=== PATIENT | female | born 1950 | race Caucasian/White ===

== ENCOUNTER → 2017-08-21 15:42 | Outpatient (CLI) | payer MEDICARE, OTHER, SELFPAY ==
[2017-08-21 17:37] LABS: Microalbumin,Random Urine 51.6 mg/L (NO RANGE EST.); Microalbumin:Creatinine Ratio 31.9 mg/g CRE (<30 mg/g CRE)
== END ==
PROVIDERS: Family Provider Family Medicine Geriatric Medicine; PCP Family Medicine Geriatric Medicine; Visit Provider Internal Medicine Nephrology
DX: E11.9 Type 2 diabetes mellitus without complications (principal)
CPT/HCPCS: 82043; 82570

== ENCOUNTER → 2017-08-23 14:41 | Outpatient (CLI) | payer MEDICARE, OTHER, SELFPAY ==
--- NOTE | 2017-08-23 14:45 | US_ITS ---
STUDY: RENAL ULTRASOUND - COMPLETE REASON FOR EXAM: Female, 66 years old. Chronic kidney disease stage III. TECHNIQUE: Ultrasound evaluation of the kidneys was performed with real-time and static yeh-scale imaging. COMPARISON: None. FINDINGS: RIGHT KIDNEY: Normal location of the right kidney, which is normal in size. The right kidney measures 10.5 cm. There is a normal cortex of the right kidney. The renal cortex measures 1.1 cm. There is no right renal mass or cyst. There are no right renal calculi. There is no right hydronephrosis. DISTAL RIGHT URETER: There is non-visualization of the distal right ureter. There is no demonstrated right ureterovesical junction calculus. There is no demonstrated right ureteral jet. LEFT KIDNEY: Normal location of the left kidney, which is normal in size. The left kidney measures 11.3 cm. There is a normal cortex of the left kidney. The renal cortex measures 1.2 cm. There is no left renal mass or cyst. There is a 6 x 8 x 8 cm echogenic focus in the mid wall with shadowing. There is no left hydronephrosis. DISTAL LEFT URETER: There is non-visualization of the distal left ureter. There is no demonstrated left ureterovesical junction calculus. There is no demonstrated left ureteral jet. BLADDER: The incompletely distended urinary bladder has a volume of 53 ml. There is a normal wall thickness of the distended urinary bladder. There is no demonstrated mass within the urinary bladder. There are no demonstrated bladder calculi. US/Kidney and Bladder IMPRESSION: 1. Echogenic focus in the mid left kidney suggesting cortical calcification or stone. 2. Otherwise normal renal ultrasound. Electronically Signed: Milind Bertrand DO at 15:58 EST Tel [phone], Service support ,
== END ==
PROVIDERS: Family Provider Family Medicine Geriatric Medicine; PCP Family Medicine Geriatric Medicine; Visit Provider Internal Medicine Nephrology
DX: N18.3 Chronic kidney disease, stage 3 (moderate) (principal)
CPT/HCPCS: 76770

== ENCOUNTER → 2017-10-03 12:21 | Outpatient (CLI) | payer MEDICARE, OTHER, SELFPAY ==
[2017-10-03 13:24] LABS: Absolute Lymphocyte Count 1.19 X10^3/ul (0.83-4.51); Basophil# 0.01 X10^3/uL; Basophil% 0.3 % (0-1); Eosinophil# 0.06 X10^3/uL; Eosinophils% 1.7 % (0-5); Hematocrit 40.4 % (37-47); Hemoglobin 12.5 g/dl (12.0-15.0); Lymphocyte # 1.19 X10^3/ul (4.0); Lymphocyte % 34.1 % (19-41); Mean Corp Hgb Conc 30.9 g/gl (32-36); Mean Corpuscular Hgb 27.3 pg (27.0-32.0); Mean Corpuscular Volume 88.2 fL (81-99); Mean Platelet Vol. 12.6 fl (6.2-12.0); Monocyte# 0.27 X10^3/uL; Monocyte% 7.7 % (0-10); Neutrophil # 1.96 X10^3/uL (2.7-7.7); Neutrophil % 56.2 % (47-70); Platelet Count 111 K/mm3 (150-450); RBC Distribution Width CV 14.2 % (11.6-14.6); RBC Distribution Width SD 45.6 fl (35.1-43.9); Red Blood Count 4.58 M/mm3 (4.2-5.4); White Blood Count 3.5 K/mm3 (4.4-11.0)
[2017-10-03 13:36] LABS: POSITIVE COUNT NO; POSITIVE DIFFERENTIAL NO; POSITIVE MORPHOLOGY NO
[2017-10-03 13:40] LABS: Vitamin D,25 Hydroxy 55.1 ng/mL (29.95-100.01)
[2017-10-03 13:42] LABS: AST(SGOT) 35 U/L (15-37); Alanine Aminotransfer ALT/SGPT 140 U/L (13-56); Albumin, Serum 3.8 g/dL (3.2-5.0); Alkaline Phosphatase 116 U/L (45-117); Anion Gap 7 (5-15); BUN 43 mg/dL (7-18); BUN/Creat Ratio 31.2 RATIO (10-20); Bilirubin, Direct 0.11 mg/dL (0.00-0.30); Calcium,Total 8.9 mg/dL (8.5-10.1); Chloride 105 mmol/L (98-107); Creatinine, Serum 1.38 mg/dL (0.55-1.02); EST Glomerular Filtration Rate 40 mL/min (>60); Est Glom Filt Rate - Afr Amer 49 mL/min (>60); Globulin 3.5 g/dL (2.2-4.2); Glucose 146 mg/dL (74-106); Phosphorus 3.4 mg/dL (2.5-4.9); Potassium 4.4 mmol/L (3.5-5.1); Protein, Total 7.3 g/dL (6.4-8.2); Sodium Level 139 mmol/L (136-145); Thyroid Stim Hormone (TSH) 3.15 uIU/mL (0.358-3.74)
[2017-10-03 13:56] LABS: PTHIN 58.5 pg/mL (18.4-80.1)
== END ==
PROVIDERS: Family Provider Family Medicine Geriatric Medicine; PCP Family Medicine Geriatric Medicine; Visit Provider Internal Medicine Nephrology
DX: E11.9 Type 2 diabetes mellitus without complications (principal); I12.9 Hypertensive chronic kidney disease with stage 1 through stage 4 chronic kidney disease, or unspecified chronic kidney disease; N18.3 Chronic kidney disease, stage 3 (moderate); E55.9 Vitamin D deficiency, unspecified
CPT/HCPCS: 36415; 80048; 80076; 82306; 83970; 84100; 84443; 85025

== ENCOUNTER → 2018-01-21 10:46 | Outpatient (CLI) | payer MEDICARE, OTHER, SELFPAY ==
[2018-01-21 12:32] LABS: Absolute Lymphocyte Count 1.64 X10^3/ul (0.83-4.51); Absolute Neutrophil Count 2.8 X10^3/uL (2.0-7.7); Basophil# 0.01 X10^3/uL; Basophil% 0.2 % (0-1); Eosinophil# 0.09 X10^3/uL; Eosinophils% 1.9 % (0-5); Hematocrit 38.6 % (37-47); Hemoglobin 11.9 g/dl (12.0-15.0); Lymphocyte # 1.64 X10^3/ul (4.0); Mean Corp Hgb Conc 30.8 g/gl (32-36); Mean Corpuscular Hgb 27.4 pg (27.0-32.0); Mean Corpuscular Volume 88.7 fL (81-99); Mean Platelet Vol. 12.7 fl (6.2-12.0); Monocyte# 0.33 X10^3/uL; Monocyte% 6.8 % (0-10); Neutrophil # 2.75 X10^3/uL (2.7-7.7); Neutrophil % 56.9 % (47-70); Platelet Count 114 K/mm3 (150-450); RBC Distribution Width CV 14.4 % (11.6-14.6); RBC Distribution Width SD 46.3 fl (35.1-43.9); Red Blood Count 4.35 M/mm3 (4.2-5.4); White Blood Count 4.8 K/mm3 (4.4-11.0)
[2018-01-21 12:36] LABS: POSITIVE COUNT NO; POSITIVE DIFFERENTIAL NO; POSITIVE MORPHOLOGY NO
[2018-01-21 12:55] LABS: ALB/GLOB Ratio 1.1 RATIO (0.9-2.4); AST(SGOT) 7 U/L (15-37); Alanine Aminotransfer ALT/SGPT 28 U/L (13-56); Albumin, Serum 3.7 g/dL (3.2-5.0); Alkaline Phosphatase 76 U/L (45-117); Anion Gap 6 (5-15); BUN 53 mg/dL (7-18); BUN/Creat Ratio 35.1 RATIO (10-20); Calcium,Total 8.6 mg/dL (8.5-10.1); Chloride 108 mmol/L (98-107); Creatinine, Serum 1.51 mg/dL (0.55-1.02); EST Glomerular Filtration Rate 36 mL/min (>60); Est Glom Filt Rate - Afr Amer 44 mL/min (>60); Globulin 3.3 g/dL (2.2-4.2); Glucose 120 mg/dL (74-106); Phosphorus 2.9 mg/dL (2.5-4.9); Potassium 5.1 mmol/L (3.5-5.1); Sodium Level 138 mmol/L (136-145); Thyroid Stim Hormone (TSH) 2.55 uIU/mL (0.358-3.74)
== END ==
PROVIDERS: Family Provider Family Medicine Geriatric Medicine; PCP Family Medicine Geriatric Medicine; Visit Provider Family Medicine Geriatric Medicine
DX: E55.9 Vitamin D deficiency, unspecified (principal); I12.9 Hypertensive chronic kidney disease with stage 1 through stage 4 chronic kidney disease, or unspecified chronic kidney disease; E11.22 Type 2 diabetes mellitus with diabetic chronic kidney disease; N18.3 Chronic kidney disease, stage 3 (moderate)
CPT/HCPCS: 36415; 80053; 82306; 84100; 84443; 85025

== ENCOUNTER → 2018-03-04 08:46 | Outpatient (CLI) | payer MEDICARE, OTHER, SELFPAY ==
[2018-03-04 09:45] LABS: Albumin, Serum 3.6 g/dL (3.2-5.0); BUN 35 mg/dL (7-18); BUN/Creat Ratio 24.5 RATIO (10-20); Calcium,Total 8.1 mg/dL (8.5-10.1); Chloride 111 mmol/L (98-107); Creatinine, Serum 1.43 mg/dL (0.55-1.02); EST Glomerular Filtration Rate 39 mL/min (>60); Est Glom Filt Rate - Afr Amer 47 mL/min (>60); Glucose 128 mg/dL (74-106); Phosphorus 3.4 mg/dL (2.5-4.9); Potassium 4.8 mmol/L (3.5-5.1); Sodium Level 143 mmol/L (136-145)
== END ==
LOC: POLAB3 08:47 → LAB 09:03
PROVIDERS: Family Provider Family Medicine Geriatric Medicine; PCP Family Medicine Geriatric Medicine; Visit Provider Family Medicine Geriatric Medicine
DX: N18.3 Chronic kidney disease, stage 3 (moderate) (principal)
CPT/HCPCS: 36415; 80069

== ENCOUNTER → 2018-04-15 11:50 | Outpatient (CLI) | payer MEDICARE, OTHER, SELFPAY ==
[2018-04-15 12:31] LABS: Absolute Lymphocyte Count 1.47 X10^3/ul (0.83-4.51); Absolute Neutrophil Count 2.6 X10^3/uL (2.0-7.7); Eosinophil# 0.11 X10^3/uL; Eosinophils% 2.5 % (0-5); Hematocrit 38.7 % (37-47); Hemoglobin 11.9 g/dl (12.0-15.0); Lymphocyte # 1.47 X10^3/ul (4.0); Lymphocyte % 33.2 % (19-41); Mean Corp Hgb Conc 30.7 g/gl (32-36); Mean Corpuscular Hgb 27.5 pg (27.0-32.0); Mean Corpuscular Volume 89.6 fL (81-99); Mean Platelet Vol. 11.9 fl (6.2-12.0); Monocyte# 0.29 X10^3/uL; Monocyte% 6.5 % (0-10); Neutrophil # 2.56 X10^3/uL (2.7-7.7); Neutrophil % 57.8 % (47-70); Platelet Count 113 K/mm3 (150-450); RBC Distribution Width CV 14.3 % (11.6-14.6); RBC Distribution Width SD 47.1 fl (35.1-43.9); Red Blood Count 4.32 M/mm3 (4.2-5.4); White Blood Count 4.4 K/mm3 (4.4-11.0)
[2018-04-15 12:35] LABS: POSITIVE COUNT NO; POSITIVE DIFFERENTIAL NO; POSITIVE MORPHOLOGY NO
[2018-04-15 12:54] LABS: ALB/GLOB Ratio 1.1 RATIO (0.9-2.4); AST(SGOT) 9 U/L (15-37); Alanine Aminotransfer ALT/SGPT 30 U/L (13-56); Albumin, Serum 3.9 g/dL (3.2-5.0); Alkaline Phosphatase 77 U/L (45-117); Anion Gap 9 (5-15); BUN 46 mg/dL (7-18); BUN/Creat Ratio 30.9 RATIO (10-20); Chloride 107 mmol/L (98-107); Creatinine, Serum 1.49 mg/dL (0.55-1.02); EST Glomerular Filtration Rate 37 mL/min (>60); Est Glom Filt Rate - Afr Amer 45 mL/min (>60); Globulin 3.4 g/dL (2.2-4.2); Glucose 146 mg/dL (74-106); Potassium 4.8 mmol/L (3.5-5.1); Protein, Total 7.3 g/dL (6.4-8.2); Sodium Level 141 mmol/L (136-145)
[2018-04-15 13:05] LABS: Vitamin D,25 Hydroxy 32.5 ng/mL (29.95-100.01)
== END ==
PROVIDERS: Family Provider Family Medicine Geriatric Medicine; PCP Family Medicine Geriatric Medicine; Visit Provider Family Medicine Geriatric Medicine
DX: E11.9 Type 2 diabetes mellitus without complications (principal); E55.9 Vitamin D deficiency, unspecified; I10 Essential (primary) hypertension
CPT/HCPCS: 36415; 80053; 82306; 84443; 85025

== ENCOUNTER → 2018-07-08 13:13 | Outpatient (CLI) | payer MEDICARE, OTHER, SELFPAY ==
[2018-07-08 15:05] LABS: Absolute Lymphocyte Count 1.17 X10^3/ul (0.83-4.51); Absolute Neutrophil Count 1.7 X10^3/uL (2.0-7.7); Basophil# 0.01 X10^3/uL; Basophil% 0.3 % (0-1); Eosinophil# 0.09 X10^3/uL; Eosinophils% 2.8 % (0-5); Hematocrit 38.9 % (37-47); Hemoglobin 11.9 g/dl (12.0-15.0); Lymphocyte # 1.17 X10^3/ul (4.0); Lymphocyte % 36.7 % (19-41); Mean Corp Hgb Conc 30.6 g/gl (32-36); Mean Corpuscular Hgb 26.8 pg (27.0-32.0); Mean Corpuscular Volume 87.6 fL (81-99); Mean Platelet Vol. 12.3 fl (6.2-12.0); Monocyte# 0.25 X10^3/uL; Monocyte% 7.8 % (0-10); Neutrophil # 1.66 X10^3/uL (2.7-7.7); Neutrophil % 52.1 % (47-70); Platelet Count 118 K/mm3 (150-450); RBC Distribution Width SD 45.3 fl (35.1-43.9); Red Blood Count 4.44 M/mm3 (4.2-5.4); White Blood Count 3.2 K/mm3 (4.4-11.0)
[2018-07-08 15:08] LABS: POSITIVE COUNT NO; POSITIVE DIFFERENTIAL NO; POSITIVE MORPHOLOGY NO
[2018-07-08 15:27] LABS: ALB/GLOB Ratio 1.2 RATIO (0.9-2.4); AST(SGOT) 8 U/L (15-37); Alanine Aminotransfer ALT/SGPT 27 U/L (13-56); Albumin, Serum 3.8 g/dL (3.2-5.0); Alkaline Phosphatase 81 U/L (45-117); Anion Gap 6 (5-15); BUN 29 mg/dL (7-18); BUN/Creat Ratio 20.1 RATIO (10-20); Calcium,Total 8.6 mg/dL (8.5-10.1); Chloride 108 mmol/L (98-107); Creatinine, Serum 1.44 mg/dL (0.55-1.02); EST Glomerular Filtration Rate 38 mL/min (>60); Est Glom Filt Rate - Afr Amer 46 mL/min (>60); Globulin 3.3 g/dL (2.2-4.2); Glucose 151 mg/dL (74-106); Potassium 4.5 mmol/L (3.5-5.1); Protein, Total 7.1 g/dL (6.4-8.2); Sodium Level 140 mmol/L (136-145); Thyroid Stim Hormone (TSH) 2.91 uIU/mL (0.358-3.74)
[2018-07-08 15:28] LABS: Vitamin D,25 Hydroxy 39.2 ng/mL (29.95-100.01)
--- OUTSIDE RECORDS SUMMARY | 2018-10-10 03:57 | XMS RPT_ITS ---
:1950 Author Organization OHIP Care Team Providers Name Role Phone Mikey, Evan Chi Attending Unavailable Mikey, Evan Chi Primary Care Unavailable Mikey, Evan Chi Primary Care Unavailable Teofilo, Rebecca Attending Unavailable Teofilo, Rebecca Attending Unavailable Mikey, Evan Chi Primary Care Unavailable Teofilo, Rebecca Attending Unavailable Teofilo, Rebecca Referring Unavailable Mikey, Evan Chi Primary Care Unavailable Teofilo, Rebecca Attending Unavailable Mikey, Evan Chi Primary Care Unavailable Teofilo, Rebecca Attending Unavailable Mikey, Evan Chi Primary Care Unavailable Teofilo, Rebecca Attending Unavailable Mikey, Evan Chi Primary Care Unavailable Mikey, Evan Chi Attending Unavailable Mikey, Evan Chi Primary Care Unavailable Mikey, Evan Chi Attending Unavailable Mikey, Evan Chi Primary Care Unavailable Mikey, Evan Chi Referring Unavailable Mikey, Evan Chi Attending Unavailable Mikey, Evan Chi Primary Care Unavailable Teofilo, Rebecca Attending Unavailable Mikey, Evan Chi Primary Care Unavailable PROBLEMS PROBLEMS DATE TYPE CONDITION / CODE ATTENDING STATUS SOURCE 03/04/2018 Unknown E11.9 - Type 2 Mikey, Evan Chi Active [place] diabetes mellitus Community without Hospital complications / Repository E11.9(ICD-10) 03/04/2018 Unknown N18.3 - Chronic Mikey, Evan Chi Active [place] kidney disease, Community stage 3 (moderate) Hospital / N18.3(ICD-10) Repository 03/04/2018 Unknown E55.9 - Vitamin D Mikey, Evan Chi Active [place] deficiency, Community unspecified / Hospital E55.9(ICD-10) Repository 01/21/2018 Unknown I10 - Essential Mikey, Evan Chi Active [place] (primary) Community hypertension / Hospital I10(ICD-10) Repository PROCEDURES PROCEDURES No Procedure Records FoundRESULTS RESULTS CBC W/DIFF, AUTOMATED Collected: 07/08/2018 Status: F Source: [facility] 1:29 PM [facility] REPOSITORY TYPE CODE TESTS RESULT OUT OF RANGE REFERENCE UNITS LAB L100.1000 4.4-11.0 K/mm3 Low WBC 3.2 LAB L100.1200 4.2-5.4 M/mm3 Normal RBC 4.44 LAB L100.1300 12.0-15.0 g/dl Low HGB 11.9 LAB L100.1400 37-47 % Normal HCT 38.9 LAB L100.1500 81-99 fL Normal MCV 87.6 LAB L100.1600 27.0-32.0 pg Low MCH 26.8 LAB L100.1700 32-36 g/gl Low MCHC 30.6 LAB L100.1810 11.6-14.6 % Normal RDW CV 14.0 LAB L100.1820 35.1-43.9 fl High RDW SD 45.3 LAB L100.1900 150-450 K/mm3 Low PLT 118 LAB L100.2000 6.2-12.0 fl High MPV 12.3 LAB L100.2100 47-70 % Normal NEUT% 52.1 LAB L100.2200 19-41 % Normal LY% 36.7 LAB L100.2300 0-10 % Normal MONO% 7.8 LAB L100.2400 0-5 % Normal EO% 2.8 LAB L100.2500 0-1 % Normal BASO% 0.3 LAB L100.2550 0.0-0.9 % Normal IM GRAN % 0.300 Result Comment: IG% - Immature Granulocytes (promyelocytes, myelocytes and metamyelocytes) > 1% indicates that a LEFT SHIFT is Present. LAB L100.2620 2.0-7.7 X10 3/uL Low Absolute Neut 1.7 LAB L100.2720 0.83-4.51 X10 3/ul Normal Absolute Lymph 1.17 Performed By: #### L100.0100 #### [facility] [address] [place], [place], [id number] COMPREHENSIVE METABOLIC Collected: 07/08/2018 Status: F Source: IG[facility] 1:29 PM [facility] REPOSITORY TYPE CODE TESTS RESULT OUT OF RANGE REFERENCE UNITS LAB L501.0100 74-106 mg/dL High GLU 151 Result Comment: Fasting Glucose result greater than or equal to 126 mg/dL suggests DIABETES MELLITUS per A.D.A. criteria. Please note revised GLUCOSE reference range effective 2017. LAB L501.1000 7-18 mg/dL High BUN 29 LAB L501.1100 0.55-1.02 mg/dL High CREAT,SERUM 1.44 Result Comment: The validity of the calculated GFR AND GFRAA in patients over 70 years has not been determined. Clinical correlation is essential. LAB L501.1110 >60 mL/min Low EST GFR 38 Result Comment: Non- GFR Calc LAB L501.1115 >60 mL/min Low EST GFR - AA 46 Result Comment: GFR Calc LAB L501.1300 10-20 RATIO High BUN/CRE 20.1 LAB L501.1500 6.4-8.2 g/dL T Normal PROT 7.1 LAB L501.1800 3.2-5.0 g/dL Normal ALB 3.8 LAB L501.1950 2.2-4.2 g/dL Normal GLOB 3.3 LAB L501.2000 0.9-2.4 RATIO Normal A/G 1.2 LAB L501.2200 8.5-10.1 mg/dL CA Normal 8.6 LAB L501.4100 15-37 U/L Low AST 8 LAB L501.4305 45-117 U/L Normal ALK P 81 LAB L501.4405 13-56 U/L Normal ALT 27 LAB L501.4600 0.20-1.00 mg/dL T Normal BILI 0.60 LAB L501.5300 136-145 mmol/L NA Normal 140 LAB L501.5600 3.5-5.1 mmol/L K Normal 4.5 LAB L501.5900 98-107 mmol/L High CL 108 LAB L501.6100 21.0-32.0 mmol/L Normal CO2 26.0 LAB L501.6200 5-15 Normal GAP 6 Performed By: #### L500.4050, L501.9520 #### [facility] [address] [place], [address] THYROID STIM HORMONE Collected: 07/08/2018 Status: F Source: IG[facility] (TSH) 1:29 PM [facility] REPOSITORY TYPE CODE TESTS RESULT OUT OF RANGE REFERENCE UNITS LAB L501.9520 0.358-3.74 uIU/mL Normal TSH 2.91 Performed By: #### L500.4050, L501.9520 #### [facility] [address] [place], [address] VITAMIN D,25 HYDROXY Collected: 07/08/2018 Status: F Source: [place] 1:29 PM [facility] REPOSITORY TYPE CODE TESTS RESULT OUT OF RANGE REFERENCE UNITS LAB L506.1000 29.95-100.01 ng/mL Normal Vitamin D 39.2 25-OH Result Comment: Vitamin D 25(OH) Status Range Deficiency <20 ng/mL (50nmol/L) Insuffciency 20 - 30 ng/mL (50 - 75 nmol/L) Sufficiency 30 - 100 ng/mL (75 - 250 nmol/L) Toxicity >100 ng/mL (>250 nmol/L) Performed By: #### L506.1000 #### [facility] [address] [place], [address] CNPN Observed: 05/30/2018 Status: COMPLETED Source: [facility] 12:00 AM [facility] REPOSITORY Telephone (ASWSTR) HUSSAIN OCAMPO ([id number]) 1950 F Date Time Provider Department 05/30/18 LEEANN SHAH ASWSTR During your visit today, we recorded the following information about you: Latha Desai, RN, RN 05/30/2018 10:53 AM Signed Pt overdue for screening colonoscopy. Pt needs office visit prior due to medical history. Please call pt and schedule with Denise White or Prosper Schuster. Latha Desai, DORCAS Navarro Psr 05/31/2018 4:04 PM Signed Patient refused both colonoscopy consult and IFOBT. Marcus aNvarro Psr Leeann Shah MD 05/31/2018 4:14 PM Signed Patient has not been into our offices for a year. See if seeing a new PCP if not needs seen Ayleen Patton Ma 05/31/2018 4:34 PM Signed Patient has left [facility] and now seeing Dr. Jensen updated pcp Ayleen Patton Ma Allergies As of Date: 05/30/2018 Noted Allergy Reaction PREDNISONE 12/23/2015 14 - Other: See Comments Comments: Led to CVA ACTOS (PIOGLITAZONE HCL) 03/17/2016 5 - Intolerance Comments: Swelling and weight gain LIPITOR (ATORVASTATIN CALCIUM) 12/23/2015 5 - Intolerance Comments: Elevated LFT's METFORMIN 12/28/2014 5 - Intolerance Comments: Diarrhea Date Reviewed: 06/22/2017 Reviewed by: Andrey Viveros - Fully Assessed Reason for Visit: Outpatient Colonoscopy [482] Prescriptions as of 05/30/2018 Sig: VITAMIN D2 50,000 UNIT CAPSULE TAKE ONE CAPSULE BY MOUTH ONC* LISINOPRIL 20 MG TABLET TAKE ONE TABLET BY MOUTH ONCE* BLOOD SUGAR DIAGNOSTIC STRIPS Test blood sugar(s) 1 times d* PIOGLITAZONE 30 MG TABLET Take 1 tablet by mouth once d* METFORMIN ER 500 MG TABLET,EX* Take one tablet by mouth twic* PRAVASTATIN 10 MG TABLET Take 1 tablet by mouth once d* OMEGA-3 FATTY ACIDS 1,000 MG * Take 2 capsules by mouth once* BLOOD-GLUCOSE METER KIT Glucose Meter of Choice - Kit* LANCETS Test blood sugar(s) 1 times d* ASPIRIN 81 MG TABLET,DELAYED * Take 1 tablet by mouth once d* LANCETS Use as instructed 3 times radha* BLOOD SUGAR DIAGNOSTIC STRIPS Use as instructed 3 times radha* Problem List As Of Date 05/30/2018 Noted Resolved Anxiety [F41.9] INVALID FOR* Priority: A More... Left leg cellulitis [L03.90] INVALID FOR*06/29/2014 Priority: A More... Diabetic hyperosmolar non-ketotic state (HCC) [*INVALID FOR*06/11/2014 Priority: A More... More... Thrombocytopenia (HCC) [D69.6] INVALID FOR* Priority: B More... Hypertensive crisis improved now [I16.9] INVALID FOR*06/29/2014 Priority: B More... 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 Elevated LFTs [R94.5] INVALID FOR* Priority: C More... Spleen enlarged [R16.1] INVALID FOR* Priority: B CKD (chronic kidney disease) stage 3, GFR 30-59*INVALID FOR* Encounter Status:Closed by MARCUS CASTRO on 05/31/18 CBC W/DIFF, AUTOMATED Collected: 04/15/2018 Status: F Source: IG[facility] 11:51 AM [facility] REPOSITORY TYPE CODE TESTS RESULT OUT OF RANGE REFERENCE UNITS LAB L100.1000 4.4-11.0 K/mm3 Normal WBC 4.4 LAB L100.1200 4.2-5.4 M/mm3 Normal RBC 4.32 LAB L100.1300 12.0-15.0 g/dl Low HGB 11.9 LAB L100.1400 37-47 % Normal HCT 38.7 LAB L100.1500 81-99 fL Normal MCV 89.6 LAB L100.1600 27.0-32.0 pg Normal MCH 27.5 LAB L100.1700 32-36 g/gl Low MCHC 30.7 LAB L100.1810 11.6-14.6 % Normal RDW CV 14.3 LAB L100.1820 35.1-43.9 fl High RDW SD 47.1 LAB L100.1900 150-450 K/mm3 Low PLT 113 LAB L100.2000 6.2-12.0 fl Normal MPV 11.9 LAB L100.2100 47-70 % Normal NEUT% 57.8 LAB L100.2200 19-41 % Normal LY% 33.2 LAB L100.2300 0-10 % Normal MONO% 6.5 LAB L100.2400 0-5 % Normal EO% 2.5 LAB L100.2500 0-1 % Normal BASO% 0.0 LAB L100.2550 0.0-0.9 % Normal IM GRAN % 0.000 Result Comment: IG% - Immature Granulocytes (promyelocytes, myelocytes and metamyelocytes) > 1% indicates that a LEFT SHIFT is Present. LAB L100.2620 2.0-7.7 X10 3/uL Normal Absolute Neut 2.6 LAB L100.2720 0.83-4.51 X10 3/ul Normal Absolute Lymph 1.47 Performed By: #### L100.0100 #### [facility] [address] [place], [address] COMPREHENSIVE METABOLIC Collected: 04/15/2018 Status: F Source: [facility] 11:51 AM [facility] REPOSITORY TYPE CODE TESTS RESULT OUT OF RANGE REFERENCE UNITS LAB L501.0100 74-106 mg/dL High GLU 146 Result Comment: Fasting Glucose result greater than or equal to 126 mg/dL suggests DIABETES MELLITUS per A.D.A. criteria. Please note revised GLUCOSE reference range effective 2017. LAB L501.1000 7-18 mg/dL High BUN 46 LAB L501.1100 0.55-1.02 mg/dL High CREAT,SERUM 1.49 Result Comment: The validity of the calculated GFR AND GFRAA in patients over 70 years has not been determined. Clinical correlation is essential. LAB L501.1110 >60 mL/min Low EST GFR 37 Result Comment: Non- GFR Calc LAB L501.1115 >60 mL/min Low EST GFR - AA 45 Result Comment: GFR Calc LAB L501.1300 10-20 RATIO High BUN/CRE 30.9 LAB L501.1500 6.4-8.2 g/dL T Normal PROT 7.3 LAB L501.1800 3.2-5.0 g/dL Normal ALB 3.9 LAB L501.1950 2.2-4.2 g/dL Normal GLOB 3.4 LAB L501.2000 0.9-2.4 RATIO Normal A/G 1.1 LAB L501.2200 8.5-10.1 mg/dL CA Normal 9.0 LAB L501.4100 15-37 U/L Low AST 9 LAB L501.4305 45-117 U/L Normal ALK P 77 LAB L501.4405 13-56 U/L Normal ALT 30 LAB L501.4600 0.20-1.00 mg/dL T Normal BILI 0.50 LAB L501.5300 136-145 mmol/L NA Normal 141 LAB L501.5600 3.5-5.1 mmol/L K Normal 4.8 LAB L501.5900 98-107 mmol/L CL Normal 107 LAB L501.6100 21.0-32.0 mmol/L Normal CO2 25.0 LAB L501.6200 5-15 Normal GAP 9 Performed By: #### L500.4050, L501.9520 #### [facility] [address] [facility] [place], [place], [address] THYROID STIM HORMONE Collected: 04/15/2018 Status: F Source: [facility] (TSH) 11:51 AM [facility] REPOSITORY TYPE CODE TESTS RESULT OUT OF RANGE REFERENCE UNITS LAB L501.9520 0.358-3.74 uIU/mL Normal TSH 3.00 Performed By: #### L500.4050, L501.9520 #### [facility] [address] [place], [place], [address] VITAMIN D,25 HYDROXY Collected: 04/15/2018 Status: F Source: [facility] 11:51 AM [facility] REPOSITORY TYPE CODE TESTS RESULT OUT OF RANGE REFERENCE UNITS LAB L506.1000 29.95-100.01 ng/mL Normal Vitamin D 32.5 25-OH Result Comment: Vitamin D 25(OH) Status Range Deficiency <20 ng/mL (50nmol/L) Insuffciency 20 - 30 ng/mL (50 - 75 nmol/L) Sufficiency 30 - 100 ng/mL (75 - 250 nmol/L) Toxicity >100 ng/mL (>250 nmol/L) Performed By: #### L506.1000 #### [facility] [address] [facility] [place], [place], [address] RENAL PROFILE Collected: 03/04/2018 Status: F Source: [facility] 9:08 AM [facility] REPOSITORY TYPE CODE TESTS RESULT OUT OF RANGE REFERENCE UNITS LAB L501.0100 74-106 mg/dL High GLU 128 Result Comment: Fasting Glucose result greater than or equal to 126 mg/dL suggests DIABETES MELLITUS per A.D.A. criteria. Please note revised GLUCOSE reference range effective 2017. LAB L501.1000 7-18 mg/dL High BUN 35 LAB L501.1100 0.55-1.02 mg/dL High CREAT,SERUM 1.43 Result Comment: The validity of the calculated GFR AND GFRAA in patients over 70 years has not been determined. Clinical correlation is essential. LAB L501.1110 >60 mL/min Low EST GFR 39 Result Comment: Non- GFR Calc LAB L501.1115 >60 mL/min Low EST GFR - AA 47 Result Comment: GFR Calc LAB L501.1300 10-20 RATIO High BUN/CRE 24.5 LAB L501.1800 3.2-5.0 g/dL Normal ALB 3.6 LAB L501.2200 8.5-10.1 mg/dL Low CA 8.1 LAB L501.2300 2.5-4.9 mg/dL Normal PHOS 3.4 LAB L501.5300 136-145 mmol/L NA Normal 143 LAB L501.5600 3.5-5.1 mmol/L K Normal 4.8 LAB L501.5900 98-107 mmol/L High CL 111 LAB L501.6100 21.0-32.0 mmol/L Normal CO2 27.0 Performed By: #### L500.3600 #### [facility] [address] [place], [address] CBC W/DIFF, AUTOMATED Collected: 01/21/2018 Status: F Source: [facility] 10:48 AM [facility] REPOSITORY Order Comment: WHATS THE CMP AND PHOS TYPE CODE TESTS RESULT OUT OF RANGE REFERENCE UNITS LAB L100.1000 4.4-11.0 K/mm3 Normal WBC 4.8 LAB L100.1200 4.2-5.4 M/mm3 Normal RBC 4.35 LAB L100.1300 12.0-15.0 g/dl Low HGB 11.9 LAB L100.1400 37-47 % Normal HCT 38.6 LAB L100.1500 81-99 fL Normal MCV 88.7 LAB L100.1600 27.0-32.0 pg Normal MCH 27.4 LAB L100.1700 32-36 g/gl Low MCHC 30.8 LAB L100.1810 11.6-14.6 % Normal RDW CV 14.4 LAB L100.1820 35.1-43.9 fl High RDW SD 46.3 LAB L100.1900 150-450 K/mm3 Low PLT 114 LAB L100.2000 6.2-12.0 fl High MPV 12.7 LAB L100.2100 47-70 % Normal NEUT% 56.9 LAB L100.2200 19-41 % Normal LY% 34.0 LAB L100.2300 0-10 % Normal MONO% 6.8 LAB L100.2400 0-5 % Normal EO% 1.9 LAB L100.2500 0-1 % Normal BASO% 0.2 LAB L100.2550 0.0-0.9 % Normal IM GRAN % 0.200 Result Comment: IG% - Immature Granulocytes (promyelocytes, myelocytes and metamyelocytes) > 1% indicates that a LEFT SHIFT is Present. LAB L100.2620 2.0-7.7 X10 3/uL Normal Absolute Neut 2.8 LAB L100.2720 0.83-4.51 X10 3/ul Normal Absolute Lymph 1.64 Performed By: #### L100.0100 #### [facility] [address] [place] [address]. [place], [address] VITAMIN D,25 HYDROXY Collected: 01/21/2018 Status: F Source: [facility] 10:48 AM [facility] REPOSITORY Order Comment: WHATS THE CMP AND PHOS TYPE CODE TESTS RESULT OUT OF RANGE REFERENCE UNITS LAB L506.1000 29.95-100.01 ng/mL Normal Vitamin D 46.0 25-OH Result Comment: Vitamin D 25(OH) Status Range Deficiency <20 ng/mL (50nmol/L) Insuffciency 20 - 30 ng/mL (50 - 75 nmol/L) Sufficiency 30 - 100 ng/mL (75 - 250 nmol/L) Toxicity >100 ng/mL (>250 nmol/L) Performed By: #### L506.1000 #### [facility] [address] [place], [address] COMPREHENSIVE METABOLIC Collected: 01/21/2018 Status: F Source: IG[facility] PROFIL 10:48 AM [facility] REPOSITORY Order Comment: WHATS THE CMP AND PHOS TYPE CODE TESTS RESULT OUT OF RANGE REFERENCE UNITS LAB L501.0100 74-106 mg/dL High GLU 120 Result Comment: Fasting Glucose result from 100 to 125 mg/dL suggests IMPAIRED HOMEOSTASIS per A.D.A. criteria. Please note revised GLUCOSE reference range effective 2017. LAB L501.1000 7-18 mg/dL High BUN 53 LAB L501.1100 0.55-1.02 mg/dL High CREAT,SERUM 1.51 Result Comment: The validity of the calculated GFR AND GFRAA in patients over 70 years has not been determined. Clinical correlation is essential. LAB L501.1110 >60 mL/min Low EST GFR 36 Result Comment: Non- GFR Calc LAB L501.1115 >60 mL/min Low EST GFR - AA 44 Result Comment: GFR Calc LAB L501.1300 10-20 RATIO High BUN/CRE 35.1 LAB L501.1500 6.4-8.2 g/dL T Normal PROT 7.0 LAB L501.1800 3.2-5.0 g/dL Normal ALB 3.7 LAB L501.1950 2.2-4.2 g/dL Normal GLOB 3.3 LAB L501.2000 0.9-2.4 RATIO Normal A/G 1.1 LAB L501.2200 8.5-10.1 mg/dL CA Normal 8.6 LAB L501.4100 15-37 U/L Low AST 7 LAB L501.4305 45-117 U/L Normal ALK P 76 LAB L501.4405 13-56 U/L Normal ALT 28 LAB L501.4600 0.20-1.00 mg/dL T Normal BILI 0.50 LAB L501.5300 136-145 mmol/L NA Normal 138 LAB L501.5600 3.5-5.1 mmol/L K Normal 5.1 LAB L501.5900 98-107 mmol/L High CL 108 LAB L501.6100 21.0-32.0 mmol/L Normal CO2 24.0 LAB L501.6200 5-15 Normal GAP 6 Performed By: #### L500.4050, L501.2300, L501.9520 #### [facility] [address] [facility] [place], [address] PHOSPHORUS Collected: 01/21/2018 Status: F Source: [facility] 10:48 AM [facility] REPOSITORY Order Comment: WHATBethany THE CMP AND PHOS TYPE CODE TESTS RESULT OUT OF RANGE REFERENCE UNITS LAB L501.2300 2.5-4.9 mg/dL Normal PHOS 2.9 Performed By: #### L500.4050, L501.2300, L501.9520 #### [facility] [address] [facility] [place], [address] THYROID STIM HORMONE Collected: 01/21/2018 Status: F Source: [place] (TSH) 10:48 AM [facility] REPOSITORY Order Comment: WHATBethany THE CMP AND PHOS TYPE CODE TESTS RESULT OUT OF RANGE REFERENCE UNITS LAB L501.9520 0.358-3.74 uIU/mL Normal TSH 2.55 Performed By: #### L500.4050, L501.2300, L501.9520 #### [facility] [address] [facility] [place], [place], [address] CBC W/DIFF, AUTOMATED Collected: 10/03/2017 Status: F Source: [facility] 12:23 PM [facility] REPOSITORY Order Comment: DR GIFFORD ORDERED RENAL PTH ONLY TYPE CODE TESTS RESULT OUT OF RANGE REFERENCE UNITS LAB L100.1000 4.4-11.0 K/mm3 Low WBC 3.5 LAB L100.1200 4.2-5.4 M/mm3 Normal RBC 4.58 LAB L100.1300 12.0-15.0 g/dl Normal HGB 12.5 LAB L100.1400 37-47 % Normal HCT 40.4 LAB L100.1500 81-99 fL Normal MCV 88.2 LAB L100.1600 27.0-32.0 pg Normal MCH 27.3 LAB L100.1700 32-36 g/gl Low MCHC 30.9 LAB L100.1810 11.6-14.6 % Normal RDW CV 14.2 LAB L100.1820 35.1-43.9 fl High RDW SD 45.6 LAB L100.1900 150-450 K/mm3 Low PLT 111 LAB L100.2000 6.2-12.0 fl High MPV 12.6 LAB L100.2100 47-70 % Normal NEUT% 56.2 LAB L100.2200 19-41 % Normal LY% 34.1 LAB L100.2300 0-10 % Normal MONO% 7.7 LAB L100.2400 0-5 % Normal EO% 1.7 LAB L100.2500 0-1 % Normal BASO% 0.3 LAB L100.2550 0.0-0.9 % Normal IM GRAN % 0.000 Result Comment: IG% - Immature Granulocytes (promyelocytes, myelocytes and metamyelocytes) > 1% indicates that a LEFT SHIFT is Present. LAB L100.2620 2.0-7.7 X10 3/uL Normal Absolute Neut 2.0 LAB L100.2720 0.83-4.51 X10 3/ul Normal Absolute Lymph 1.19 Performed By: #### L100.0100 #### [facility] [address] [facility]. [place], [place], [address] VITAMIN D,25 HYDROXY Collected: 10/03/2017 Status: F Source: IGOR 12:23 PM [facility] REPOSITORY Order Comment: DR GIFFORD ORDERED RENAL PTH ONLY TYPE CODE TESTS RESULT OUT OF RANGE REFERENCE UNITS LAB L506.1000 29.95-100.01 ng/mL Normal Vitamin D 55.1 25-OH Result Comment: Vitamin D 25(OH) Status Range Deficiency <20 ng/mL (50nmol/L) Insuffciency 20 - 30 ng/mL (50 - 75 nmol/L) Sufficiency 30 - 100 ng/mL (75 - 250 nmol/L) Toxicity >100 ng/mL (>250 nmol/L) Performed By: #### L506.1000 #### [facility] [address] [place], [address] BASIC METABOLIC Collected: 10/03/2017 Status: F Source: IGOR PROFILE (BMP) 12:23 PM [facility] REPOSITORY Order Comment: DR GIFFORD ORDERED RENAL PTH ONLY TYPE CODE TESTS RESULT OUT OF RANGE REFERENCE UNITS LAB L501.0100 74-106 mg/dL High GLU 146 Result Comment: Fasting Glucose result greater than or equal to 126 mg/dL suggests DIABETES MELLITUS per A.D.A. criteria. Please note revised GLUCOSE reference range effective 2017. LAB L501.1000 7-18 mg/dL High BUN 43 LAB L501.1100 0.55-1.02 mg/dL High CREAT,SERUM 1.38 Result Comment: The validity of the calculated GFR AND GFRAA in patients over 70 years has not been determined. Clinical correlation is essential. LAB L501.1110 >60 mL/min Low EST GFR 40 Result Comment: Non- GFR Calc LAB L501.1115 >60 mL/min Low EST GFR - AA 49 Result Comment: GFR Calc LAB L501.1300 10-20 RATIO High BUN/CRE 31.2 LAB L501.2200 8.5-10.1 mg/dL CA Normal 8.9 LAB L501.5300 136-145 mmol/L NA Normal 139 LAB L501.5600 3.5-5.1 mmol/L K Normal 4.4 LAB L501.5900 98-107 mmol/L CL Normal 105 LAB L501.6100 21.0-32.0 mmol/L Normal CO2 27.0 LAB L501.6200 5-15 Normal GAP 7 Performed By: #### L500.2500, L500.3400, L501.2300, L501.9520 #### [facility] [address] [place], [place], [address] LIVER PROFILE Collected: 10/03/2017 Status: F Source: IGOR 12:23 PM [facility] REPOSITORY Order Comment: DR GIFFORD ORDERED RENAL PTH ONLY TYPE CODE TESTS RESULT OUT OF RANGE REFERENCE UNITS LAB L501.1500 6.4-8.2 g/dL Normal T PROT 7.3 LAB L501.1800 3.2-5.0 g/dL Normal ALB 3.8 LAB L501.1950 2.2-4.2 g/dL Normal GLOB 3.5 LAB L501.4100 15-37 U/L Normal AST 35 LAB L501.4305 45-117 U/L Normal ALK P 116 LAB L501.4405 13-56 U/L High ALT 140 Result Comment: Please note revised ALT reference range effective 2017. LAB L501.4600 0.20-1.00 mg/dL Normal T BILI 0.60 LAB L501.4700 0.00-0.30 mg/dL Normal D BILI 0.11 Performed By: #### L500.2500, L500.3400, L501.2300, L501.9520 #### [facility] [address] [place], [address] PHOSPHORUS Collected: 10/03/2017 Status: F Source: IG[facility] 12:23 PM [facility] REPOSITORY Order Comment: DR GIFFORD ORDERED RENAL PTH ONLY TYPE CODE TESTS RESULT OUT OF RANGE REFERENCE UNITS LAB L501.2300 2.5-4.9 mg/dL Normal PHOS 3.4 Performed By: #### L500.2500, L500.3400, L501.2300, L501.9520 #### [facility] [address] [place], [address] THYROID STIM HORMONE Collected: 10/03/2017 Status: F Source: IGOR (TSH) 12:23 PM [facility] REPOSITORY Order Comment: DR GIFFORD ORDERED RENAL PTH ONLY TYPE CODE TESTS RESULT OUT OF RANGE REFERENCE UNITS LAB L501.9520 0.358-3.74 uIU/mL Normal TSH 3.15 Performed By: #### L500.2500, L500.3400, L501.2300, L501.9520 #### [facility] [address] [place], [address] PTHIN Collected: 10/03/2017 Status: F Source: IGOR 12:23 PM [facility] REPOSITORY Order Comment: DR GIFFORD ORDERED RENAL PTH ONLY TYPE CODE TESTS RESULT OUT OF RANGE REFERENCE UNITS LAB L509.1000 18.4-80.1 pg/mL Normal PTHIN 58.5 Result Comment: Please Note: PTH INTACT METHOD AND REFERENCE RANGE CHANGE Effective 07/11/2017. Performed By: #### L509.1000 #### [facility] [address] [place], [address] KIDNEY AND BLADDER Observed: 08/23/2017 Status: F Source: IGOR 2:45 PM [facility] REPOSITORY [facility] Imaging Services [address] [place] [address] Kidney and Bladder MR#: [id number] Acct: [id number] Name: HUSSAIN OCAMPO Rep #: [id number] : 1950 F 66 From: Milind Bertrand DO PCP: Mikey GÓMEZ,Evan Santiago Status: REG CLI Study: Kidney and Bladder Date of Exam: 08/23/17 Exam# [id number] Ordering Dr: Rebecca Gifford DO STUDY: RENAL ULTRASOUND - COMPLETE REASON FOR EXAM: Female, 66 years old. Chronic kidney disease stage III. TECHNIQUE: Ultrasound evaluation of the kidneys was performed with real-time and static yeh-scale imaging. COMPARISON: None. FINDINGS: RIGHT KIDNEY: Normal location of the right kidney, which is normal in size. The right kidney measures 10.5 cm. There is a normal cortex of the right kidney. The renal cortex measures 1.1 cm. There is no right renal mass or cyst. There are no right renal calculi. There is no right hydronephrosis. DISTAL RIGHT URETER: There is non-visualization of the distal right ureter. There is no demonstrated right ureterovesical junction calculus. There is no demonstrated right ureteral jet. LEFT KIDNEY: Normal location of the left kidney, which is normal in size. The left kidney measures 11.3 cm. There is a normal cortex of the left kidney. The renal cortex measures 1.2 cm. There is no left renal mass or cyst. There is a 6 x 8 x 8 cm echogenic focus in the mid wall with shadowing. There is no left hydronephrosis. DISTAL LEFT URETER: There is non-visualization of the distal left ureter. There is no demonstrated left ureterovesical junction calculus. There is no demonstrated left ureteral jet. BLADDER: The incompletely distended urinary bladder has a volume of 53 ml. There is a normal wall thickness of the distended urinary bladder. There is no demonstrated mass within the urinary bladder. There are no demonstrated bladder calculi. US/Kidney and Bladder IMPRESSION: 1. Echogenic focus in the mid left kidney suggesting cortical calcification or stone. 2. Otherwise normal renal ultrasound. Electronically Signed: Milind Bertrand DO at 15:58 EST Tel [phone], Service support , CC: Rebecca Gifford DO; Evan Jensen MD Swimming Pool Installer And Servicer: Signed MICROALB:CREAT Collected: 08/21/2017 Status: F [facility] UR 3:58 PM [facility] REPOSITORY TYPE CODE TESTS RESULT OUT OF RANGE REFERENCE UNITS LAB L501.1200 NO RANGE EST. mg/dL Normal UR CREAT 162.00 LAB L502.0500 NO RANGE EST. mg/L Normal 51.6 MICROALBUMIN ,UR LAB L502.0600 <30 mg/g CRE mg/g CRE High 31.9 MALB:CREAT Performed By: #### L502.0250 #### [facility] [address] [place] [address], [id number] ALLERGIES ALLERGIES No Allergies Records FoundENCOUNTERS ENCOUNTERS ADMIT/DISCHARGE ACCOUNT ADMITTING ENCOUNTER LOCATION SOURCE NUMBER CLASS 07/08/[id number] ing:POLAB3 Repository 04/29/2018 [id number] Ambulatory [address] ing:LAB.FUTUR Repository E 04/15/2018 [id number] Ambulatory [facility] 1 [facility] ing:POLAB3 Repository 03/04/2018 [id number] [facility] ing:LAB Repository 01/21/[id number] ing:POLAB3 Repository 01/21/2018 [id number] Ambulatory [facility] 6 [facility] ing:LAB.FUTUR Repository E 01/21/[id number] ing:LAB.FUTUR Repository E 10/03/2017 [id number] Ambulatory [facility] 7 [facility] ing:POLAB3 Repository 08/23/2017 [id number] Ambulatory Igor Igor 3 [facility] ing:USHP Repository 08/21/2017 [id number] Ambulatory [place] 9 [facility] ing:POLAB3 Repository 08/21/2017 [id number] Ambulatory [place] 2 [facility] ing:LAB.FUTUR Repository E PAYERS PAYERS ENCOUNTER GUARANTOR PAYER SUBSCRIBER SOURCE 07/08/2018 HUSSAIN Boyer Primary HUSSAIN Multanioster [id number] Insurance:MEDICARE GEORGEDOB: [facility] PART A BPolicy Number: [id number] [id number] Repository 53782Avm: 330) Date:2018-07-08 [phone] () 07/08/2018 Secondary HUSSAIN Multanioster Insurance:HUMANA GEORGEDOB: [facility] [id number] Hospital Number: Repository [id number] Date:8756-40-24DN [address] [address]MS: 07/08/2018 Tertiary NOT GIVENUNK [place] Insurance:SELF PAY [facility] Number: Effective Repository Date:2018-07-08 04/29/2018 HUSSAIN Boyer Primary HUSSAIN Boyer [place] [id number] Insurance:MEDICARE GEORGEDOB: [facility] PART A BPolicy Number: [id number], [place] [id number] Repository [address]Drn: 330) Date:2018-04-29 [phone] () 04/29/2018 Secondary HUSSAIN Boyer Igor Insurance:HUMANA TERRENCEDOB: [facility] [id number] Hospital Number: Repository [id number] Date:3178-45-32ZE [address] [address]VG: 04/29/2018 Tertiary NOT GIVENUNK Igor Insurance:SELF PAY [facility] Hospital Number: Effective Repository Date:2018-04-29 04/15/2018 HUSSAIN Boyer Primary HUSSAIN Multanioster [id number] Insurance:MEDICARE GEORGEDOB: [facility] [place] PART A BPolicy Number: [id number], [place] [id number] Repository [address]Wig: (330) Date:2018-04-15 [phone] () 04/15/2018 Secondary HUSSAIN Boyer Igor Insurance:HUMANA GEORGEDOB: Community COMMERCIALPolicy [id number] Hospital Number: Repository [id number] Date:0679-60-76OL [address] [place] [address]JH: 04/15/2018 Tertiary NOT GIVENUNK Igor Insurance:SELF PAY [facility] Hospital Number: Effective Repository Date:2018-04-15 03/04/2018 HUSSAIN Boyer Primary HUSSAIN Costa [id number] Insurance:MEDICARE GEORGEDOB: [facility] [place] PART A BPolicy Number: [id number], [place] [id number] Repository [address]Sgs: (330) Date:2018-03-04 [phone] () 03/04/2018 Secondary HUSSAIN Boyer Igor Insurance:HUMANA GEORGEDOB: [facility] [id number] Hospital Number: Repository [id number] Date:5057-39-65QY [address] [place] [address]PF: 03/04/2018 Tertiary NOT GIVENUNK [place] Insurance:SELF PAY [facility] Hospital Number: Effective Repository Date:2018-03-04 01/21/2018 HUSSAIN Primary HUSSAIN Costa [id number] Insurance:MEDICARE GEORGEDOB: [facility] [place] PART A BPolicy Number: [id number], [place] [id number] Repository [address]Ocb: (330) Date:2018-01-21 [phone] () 01/21/2018 Secondary HUSSAIN [place] Insurance:HUMANA GEORGEDOB: [facility] [id number] Hospital Number: Repository [id number] Date:9263-23-41YS [address] [place] [address]FU: 01/21/2018 Tertiary NOT GIVENUNK [place] Insurance:SELF PAY [facility] Number: Effective Repository Date:2018-01-21 01/21/2018 HUSSAIN Primary HUSSAIN [id number] Insurance:MEDICARE GEORGEDOB: [facility] [place] PART A BPolicy Number: [id number], [place] [id number] Repository [address]Kfw: 330) Date:2017-10-03 [phone] () 01/21/2018 Secondary HUSSAIN Igor Insurance:HUMANA GEORGEDOB: Community COMMERCIALPolicy [id number] Hospital Number: Repository [id number] Date:3829-75-64PD[address] [address]OQ: 01/21/2018 Tertiary NOT GIVENUNK Igor Insurance:SELF PAY [facility] Number: Effective Repository Date:2017-10-03 01/21/2018 HUSSAIN Primary HUSSAINOBED [id number] Insurance:MEDICARE GEORGEDOB: [facility] [place] PART A BPolicy Number: [id number], [place] [id number] Repository [address]Wwc: 330) Date:2017-10-04 [phone] () 01/21/2018 Secondary HUSSAIN Igor Insurance:HUMANA GEORGEDOB: Community COMMERCIALPolicy [id number] Hospital Number: Repository [id number] Date:1796-36-19LL[address] [address]UI: 01/21/2018 Tertiary NOT GIVENUNK Igor Insurance:SELF PAY [facility] Number: Effective Repository Date:2017-10-04 10/03/2017 HUSSAIN Primary HUSSAIN Igor [id number] Insurance:MEDICARE GEORGEDOB: [facility] [place] PART A BPolicy Number: [id number], [place] [id number] Repository [address]Opt: 330) Date:2017-10-02 [phone] () 10/03/2017 Secondary HUSSAIN [place] Insurance:HUMANA GEORGEDOB: Community COMMERCIALPolicy [id number] Hospital Number: Repository [id number] Date:9114-44-00RE [address] [address]MA: 10/03/2017 Tertiary NOT GIVENUNK [place] Insurance:SELF PAY [facility] Number: Effective Repository Date:2017-10-02 08/23/2017 HUSSAIN Primary HUSSAIN Igor [id number] Insurance:MEDICARE GEORGEDOB: [facility] [place] PART A BPolicy Number: [id number], [place] [id number] Repository [address]Jss: (559) Date:2017-08-21 [phone] () 08/23/2017 Secondary HUSSAIN [place] Insurance:HUMANA TERRENCEDOB: [facility] COMMERCIALPolic [id number] Hospital Number: Repository [id number] Date:7599-87-56WR [address] [address]TP: 08/23/2017 Tertiary NOT GIVENUNK Igor Insurance:SELF PAY [facility] Hospital Number: Effective Repository Date:2017-08-21 08/21/2017 HUSSAIN Primary HUSSAIN [place] [id number] Insurance:MEDICARE GEORGEDOB: [facility] [place] PART A BPolicy Number: [id number], [place] [id number] Repository [address]Uum: 330) Date:2017-08-21 [phone] () 08/21/2017 Secondary HUSSAIN Igor Insurance:HUMANA TERRENCEDOB: [facility] COMMERCIALPolicy [id number] Hospital Number: Repository [id number] Date:0774-67-60UT [address] [address]RO: 08/21/2017 Tertiary NOT GIVENUNK [place] Insurance:SELF PAY [facility] Hospital Number: Effective Repository Date:2017-08-21 08/21/2017 HUSSAIN Primary HUSSAIN Igor [id number] Insurance:MEDICARE GEORGEDOB: [place] PART A BPolicy Number: [id number], [place] [id number] Repository [address]Csx: 330) Date:2017-08-21 [phone] () 08/21/2017 Secondary HUSSAIN [place] Insurance:BLAIR GOMEZ: [facility] COMMERCIALPolicy [id number] Hospital Number: Repository [id number] Date:6099-50-23[id number] [place] [address]WK: 08/21/2017 Tertiary NOT GIVENUNK Igor Insurance:SELF PAY [facility]: Effective Repository Date:2017-08-21
== END ==
PROVIDERS: Family Provider Family Medicine Geriatric Medicine; PCP Family Medicine Geriatric Medicine; Visit Provider Family Medicine Geriatric Medicine
DX: E11.9 Type 2 diabetes mellitus without complications (principal); E55.9 Vitamin D deficiency, unspecified; I10 Essential (primary) hypertension
CPT/HCPCS: 36415; 80053; 82306; 84443; 85025

== ENCOUNTER → 2018-10-07 13:25 | Outpatient (CLI) | payer MEDICARE, SELFPAY ==
[2018-10-07 14:54] LABS: Absolute Lymphocyte Count 1.71 X10^3/ul (0.83-4.51); Absolute Neutrophil Count 2.6 X10^3/uL (2.0-7.7); Eosinophil# 0.09 X10^3/uL; Eosinophils% 1.9 % (0-5); Hematocrit 41.1 % (37-47); Hemoglobin 12.2 g/dl (12.0-15.0); Lymphocyte # 1.71 X10^3/ul (4.0); Lymphocyte % 36.3 % (19-41); Mean Corp Hgb Conc 29.7 g/gl (32-36); Mean Corpuscular Hgb 26.3 pg (27.0-32.0); Mean Corpuscular Volume 88.6 fL (81-99); Mean Platelet Vol. 12.7 fl (6.2-12.0); Monocyte% 6.4 % (0-10); Neutrophil # 2.59 X10^3/uL (2.7-7.7); Platelet Count 126 K/mm3 (150-450); RBC Distribution Width CV 14.8 % (11.6-14.6); RBC Distribution Width SD 47.2 fl (35.1-43.9); Red Blood Count 4.64 M/mm3 (4.2-5.4); White Blood Count 4.7 K/mm3 (4.4-11.0)
[2018-10-07 14:57] LABS: POSITIVE COUNT NO; POSITIVE DIFFERENTIAL NO; POSITIVE MORPHOLOGY NO
[2018-10-07 15:06] LABS: Vitamin D,25 Hydroxy 23.5 ng/mL (29.95-100.01)
[2018-10-07 15:22] LABS: ALB/GLOB Ratio 1.4 RATIO (0.9-2.4); AST(SGOT) 6 U/L (15-37); Alanine Aminotransfer ALT/SGPT 26 U/L (13-56); Albumin, Serum 4.1 g/dL (3.2-5.0); Alkaline Phosphatase 73 U/L (45-117); Anion Gap 5 (5-15); BUN 39 mg/dL (7-18); BUN/Creat Ratio 24.1 RATIO (10-20); Calcium,Total 8.5 mg/dL (8.5-10.1); Chloride 109 mmol/L (98-107); Creatinine, Serum 1.62 mg/dL (0.55-1.02); EST Glomerular Filtration Rate 33 mL/min (>60); Est Glom Filt Rate - Afr Amer 40 mL/min (>60); Globulin 2.9 g/dL (2.2-4.2); Glucose 140 mg/dL (74-106); Potassium 4.4 mmol/L (3.5-5.1); Sodium Level 138 mmol/L (136-145); Thyroid Stim Hormone (TSH) 3.59 uIU/mL (0.358-3.74)
== END ==
PROVIDERS: Family Provider Family Medicine Geriatric Medicine; PCP Family Medicine Geriatric Medicine; Visit Provider Family Medicine Geriatric Medicine
DX: E11.9 Type 2 diabetes mellitus without complications (principal); E55.9 Vitamin D deficiency, unspecified; I10 Essential (primary) hypertension
CPT/HCPCS: 36415; 80053; 82306; 84443; 85025